=== PATIENT | female | born 1985 | race African-American/Black ===

== ENCOUNTER 2019-06-11 03:11 | Emergency (ER) | payer OTHER, SELFPAY ==
[2019-06-11] MEDS ORDERED: Bupivacaine 0.25% 10 ML VIAL ONE (03:22)
== END 2019-06-11 03:47 | disposition home or self-care (01) ==
LOC: ERS 03:11
DX: K02.9 Dental caries, unspecified (principal)
CPT/HCPCS: 41800; S0020

== ENCOUNTER 2019-06-11 10:38 | Emergency (ER) | payer SELFPAY | END 2019-06-11 11:55 | disposition home or self-care (01) | LOC: ERS 10:38 | DX: K04.7 Periapical abscess without sinus (principal); K02.9 Dental caries, unspecified | CPT/HCPCS: 99283 ==

== ENCOUNTER 2019-12-14 21:12 | Emergency (ER) | payer SELFPAY ==
[2019-12-14 21:36] LABS: #Basophils 0.1 thou/uL (0.0-0.2); #Eosinphils 0.1 thou/uL (0.0-0.7); #Lymphocytes 3.7 thou/uL (1.20-3.40); #Monocytes 0.6 thou/uL (0.11-0.59); #Neutrophils 3.4 thou/uL (1.40-6.50); %Basophils 1.8 % (0.0-1.0); %Eosinophils 0.7 % (0.0-10.0); %Lymphocytes 46.2 % (21.0-51.0); %Neutrophils 43.3 % (42.0-75.0); Hemoglobin 12.7 g/dL (12.0-16.0); Mean Corpuscular HGB CONC 33.2 g/dL (32.0-36.0); Mean Corpuscular Hemoglobin 30.9 pg (27.0-31.0); Mean Corpuscular Volume 93.1 fL (78.0-98.0); Mean Platelet Volume 8.9 fL (7.4-10.4); Platelet Count 197 thou/uL (130-400); RBC Distribution Width 13.4 % (11.5-14.5); Red Blood Cell (RBC) Count 4.11 mill/uL (4.20-5.40); White Blood Cell (WBC) Count 7.9 thou/uL (4.8-10.8)
[2019-12-14] MEDS ORDERED: Lorazepam 2 MG/ML VIAL ONE (21:38)
--- NOTE | 2019-12-14 21:47 | RAD ---
EXAM: Single view of the chest HISTORY: Chest tightness COMPARISON: 07/22/2009 FINDINGS: Single view of the chest shows a normal sized cardiomediastinal silhouette. There is no shani dence of consolidation, mass, or pleural effusion. The bones are unremarkable. IMPRESSION: No evidence of acute cardiopulmonary disease
[2019-12-14 22:04] LABS: ALT (SGPT) 10 U/L (8-55); AST (SGOT) 11 U/L (5-34); Albumin 4.1 g/dL (3.5-5.0); Alkaline Phosphatase 76 U/L (40-110); Anion Gap 12 mmol/L (10-20); BUN (Urea Nitrogen) 17 mg/dL (7.0-18.7); Bilirubin, Total 0.3 mg/dL (0.2-1.2); CK (CPK) 123 U/L (29-168); Calc. Creatinine Clearance 0 mL/min (70-130); Calcium 9.3 mg/dL (7.8-10.44); Carbon Dioxide 24 mmol/L (22-29); Chloride 108 mmol/L (98-107); Estimated GFR-MDRD 90; Glucose 94 mg/dL (70-105); Potassium 3.4 mmol/L (3.5-5.1); Protein, Total 7.1 g/dL (6.0-8.3); Sodium 141 mmol/L (136-145)
[2019-12-15 00:26] LABS: Troponin I Less than 0.010 ng/mL (< 0.028)
--- NOTE | 2019-12-18 15:29 | EKG ---
Test Reason : Blood Pressure : / mmHG Vent. Rate : 072 BPM Atrial Rate : 072 BPM P-R Int : 164 ms QRS Dur : 092 ms QT Int : 362 ms P-R-T Axes : 036 036 042 degrees QTc Int : 396 ms Normal sinus rhythm with sinus arrhythmia Normal ECG Confirmed by DAMARIS FAULKNER, NICOLETTE ([id number]), editor producer JACKIE BOSE ([id number]) on 12/18/2019 3:29:10 PM Referred By: Confirmed By:NICOLETTE OCAMPO MD
== END 2019-12-15 00:40 | disposition home or self-care (01) ==
LOC: ERS 21:12
DX: F41.0 Panic disorder [episodic paroxysmal anxiety] (principal)
CPT/HCPCS: 36415; 71045; 80053; 82550; 84484; 85025; 93005; 96374; J2060